=== PATIENT | female | born 1985 | race African-American/Black ===

== ENCOUNTER 2021-12-16 08:10 | Emergency (ER) | payer SELFPAY ==
[~2021-12-16] VITALS: Ht 170.2 cm; Wt 100.2 kg
[2021-12-16 08:18] VITALS: BP 132/81
[2021-12-16] MEDS: KETOROLAC 30 MG/ML VIAL IM ONE (08:42)
[2021-12-16] MEDS: LIDOCAINE 5% 1 EA PATCH TP ONE (08:43)
[2021-12-16] MEDS ORDERED: METH-1681 PO (08:50)
[2021-12-16] MEDS ORDERED: LID5T TP (08:50)
== END 2021-12-16 09:03 | disposition home or self-care (01) ==
LOC: MED 08:10
DX: S39.012A Strain of muscle, fascia and tendon of lower back, initial encounter (principal); X50.0XXA Overexertion from strenuous movement or load, initial encounter; Y93.89 Activity, other specified; Y92.89 Other specified places as the place of occurrence of the external cause; Y99.8 Other external cause status
CPT/HCPCS: 81025; 96372; 99283; J1885